=== PATIENT | male | born 1990 | race Caucasian/White ===

== ENCOUNTER 2018-05-07 16:38 | Emergency (ER) | payer SELFPAY ==
[~2018-05-07] VITALS: Ht 182.9 cm; Wt 64.9 kg
[2018-05-07 16:40] VITALS: BP 126/80
--- NOTE | 2018-05-07 17:22 | RAD ---
EXAM: PA, oblique and lateral views of the right thumb DATE: 05/07/2018 4:51 PM INDICATION: GLASS PITCHER BROKE. POSSIBLE GLASS IN RIGHT 1ST DIGIT WITH LACERATION TO ANTERIOR ASPECT OF THUMB COMPARISON: No Prior FINDINGS/ IMPRESSION: 1. Soft tissue swelling and irregularity overlying the right thumb suggesting laceration. An 8 mm radiopaque density is seen at the palmar aspect of the IP joint, possibly from soft tissue overlap however retained foreign body is not excluded. 2. No evidence of acute fracture or dislocation. Electronically signed by: Guerrero Daniel MD (05/07/2018 5:18 PM) [facility]
--- NOTE | 2018-05-07 17:50 | PHYS DOC ---
Past History Past Medical History: No Pertinent History Past Surgical History: No Surgical History Alcohol Use: None Drug Use: Marijuana Adult General Chief Complaint Chief Complaint: LACERATION/AVULSION HPI HPI 27-year-old male presenting the emergency department today with right thumb laceration. It occurred while he was using glassware and the glass broke cutting his finger. He has a sharp nonradiating intermittent pain but denies any weakness or tingling. He denies any other injuries. Tetanus is not up-to- date. Review of systems is negative for any other injuries. ED course: 27-year-old male presenting with a 2-1/2 cm laceration to the right thumb. Right-hand dominant. The wound was washed out using saline and Betadine. On physical examination there is no sign of foreign body. X-rays obtained which showed possible foreign body which I spoke to the patient about. I'm unable to find a shard of glass or foreign body. We will suture the patient up. I informed the patient that he can follow-up with a hand surgeon tomorrow for re- wound exploration for foreign body removal. It is also possible that the x-ray finding is from soft tissue overlapping. Patient states that he does not want to follow up with hand surgeon. I explained that this could lead to discomfort or numbness in the thumb. He demonstrated verbal understanding.The patient has been examined and was not found to have an emergency medical condition. The patient was then discharged home in stable condition to follow up with their primary care physician over the next 10 days for suture removal. They were to return if their symptoms worsened or if they were concerned for any reason. They were also instructed to return to the emergency department if they were unable to get the recommended and appropriate follow-up. [id number] discharge instructions and return precautions were given. Patient's questions were answered to their satisfaction. Patient is comfortable with plan. Current Medications Current Medications Current Medications Medications (Trade) Dose Ordered Sig/Oumou Start Time Stop Time Status Last Admin Dose Admin Diphtheria/ Tetanus/Acell Pertussis (Boostrix) 0.5 ml ONCE ONCE 05/07/18 18:00 05/07/18 18:01 05/07/18 17:45 0.5 ML Lidocaine/Sodium Bicarbonate (Buffered Lidocaine 1%) 3 ml 1X ONCE 05/07/18 18:00 05/07/18 18:01 05/07/18 17:46 3 ML Allergies Allergies Allergies Uncoded Allergies Type Severity Reaction Last Updated Verified PCN Allergy Intermediate 05/07/18 Physical Exam Physical Exam Constitutional: Well developed, well nourished, no acute distress, non-toxic appearance. [] HENT: Normocephalic, atraumatic, bilateral external ears normal, oropharynx moist, no oral exudates, nose normal. [] Eyes: PERRLA, EOMI, conjunctiva normal, no discharge. [] Neck: Normal range of motion, no tenderness, supple, no stridor. [] Cardiovascular:Heart rate regular rhythm, no murmur [] Lungs & Thorax: Bilateral breath sounds clear to auscultation [] Abdomen: Bowel sounds normal, soft, no tenderness, no masses, no pulsatile masses. [] Skin: Warm, dry, no erythema, no rash. [] Back: No tenderness, no CVA tenderness. [] Extremities: The patient's right hand has a 2-1/2 cm laceration at the distal phalanx on the radial aspect of the phalanx. It is cut in an oblique fashion. It is approximately 5-7 mm in depth. No foreign bodies on inspection. No signs of tendon injury. Normal function of the thumb. The wound was explored in full range of motion and without signs of tendon injury. Good lighting and good hemostasis during examination. Otherwise the thumb is neurovascularly intact. Neurologic: Alert and oriented X 3, normal motor function, normal sensory function, no focal deficits noted. [] Psychologic: Affect normal, judgement normal, mood normal. [] Current Patient Data Vital Signs Vital Signs Date Time Temp Pulse Resp B/P (MAP) Pulse Ox O2 Delivery O2 Flow Rate FiO2 05/07/18 16:40 98.8 97 18 99 Room Air EKG EKG [] Radiology/Procedures Radiology/Procedures [] Course & Med Decision Making Course & Med Decision Making Pertinent Labs and Imaging studies reviewed. (See chart for details) [] Dragon Disclaimer Dragon Disclaimer This electronic medical record was generated, in whole or in part, using a voice recognition dictation system. Departure Departure: Impression: Primary Impression: Hand laceration Disposition: 01 HOME, SELF-CARE Condition: STABLE Referrals: PCP,NO (PCP) Patient Instructions: Laceration Care, Adult Additional Instructions: Thank you for allowing us to participate in your care today. There is a possibility of a small piece of glass left in the wound however on my examination I was unable to find anything. You can make an appointment with a hand surgeon tomorrow to reexplore the wound. Your sutures will need to be removed in 10 days. Return to the emergency department you have any new or worsening symptoms, or if you are concerned for any reason. Return to emergency department if you have any new or concerning symptoms including but not limited to fever, chills, nausea, vomiting, intractable pain, any new rashes, chest pain, shortness of air , uncontrolled bleeding, difficulty breathing, and/or vision loss. Follow up with your primary care physician within 10 days. Call your Primary Doctor tomorrow and inform them of your visit today. If you do not have a primary care provider we are happy to provide you with a list of our primary care providers contact information. This condition should be evaluated by your primary care physician and any recommended consulting services for continued management within 2 days after discharge. If at any time, you are having difficulty getting into your primary care doctor or a specialist, return to the emergency department. Laceration Repair Lac Repair Indication: []lac Procedure: The patient's wound was explored and found to not have foreign-body or tendon laceration. The wound was washed out after a digital block was placed with 1% buffered lidocaine. The wound was then sutured together with 4 simple interrupted nonabsorbable sutures. Total repaired wound length: 2.5 cm. Other Items: none The patient tolerated the procedure well. Complications: none. DIONY HUNT MD May 07, 2018 17:50
[2018-05-07] MEDS ORDERED: LIDOCAINE WITH 8.4% SOD BICARB 3 ML DISP.SYRIN. IJ ONE (18:00)
[2018-05-07] MEDS ORDERED: DIPHTH,PERTUSS(ACELL),TET TOX 0.5 ML DISP.SYRIN. VAX IM ONE (18:00)
== END 2018-05-07 18:00 | disposition home or self-care (01) ==
LOC: ER 16:38
DX: S61.011A Laceration without foreign body of right thumb without damage to nail, initial encounter (principal); Z88.0 Allergy status to penicillin; W25.XXXA Contact with sharp glass, initial encounter; Y93.89 Activity, other specified; Y92.89 Other specified places as the place of occurrence of the external cause; Y99.8 Other external cause status
CPT/HCPCS: 12001; 73140; 90471; 90715; 99283